=== PATIENT | male | born 1995 | race Caucasian/White ===

== ENCOUNTER 2024-06-03 06:18 | Day surgery (SDC) | payer OTHER, SELFPAY | END 2024-06-03 09:05 | disposition home or self-care (01) | LOC: GI 06:18 | PROVIDERS: ATTENDING PHYSICIAN Student in an Organized Health Care Education/Training Program; FAMILY PHYSICIAN Family Medicine | DX: K62.5 Hemorrhage of anus and rectum (principal); K62.89 Other specified diseases of anus and rectum; R19.5 Other fecal abnormalities | CPT/HCPCS: 45378 ==